=== PATIENT | female | born 1995 | race Two or more races ===

== ENCOUNTER 2020-02-26 09:55 | Emergency (ER) | payer MEDICAID, OTHER ==
[~2020-02-26] VITALS: Ht 160 cm; Wt 72.6 kg
[2020-02-26 10:25] LABS: Basophils # (auto) 0 10 ^3/uL (0-0.2); Basophils % (auto) 0.5 % (0.0-2.0); Eosinophils # (auto) 0 10 ^3/uL (0-0.8); Eosinophils % (auto) 0.1 % (0.0-7.0); Hemoglobin 13.1 g/dL (12.2-16.2); Lymphocytes # (auto) 2.2 10 ^3/uL (0.4-5.4); Lymphocytes % (auto) 24.5 % (10.0-50.0); Mean Corpuscular Hemoglobin 28.2 pg (28.0-32.0); Mean Corpuscular Hgb Conc. 33.6 g/dL (32.0-36.0); Mean Corpuscular Volume 84.1 fL (80.0-100.0); Monocytes # (auto) 0.8 10 ^3/uL (0-1.3); Monocytes % (auto) 8.4 % (0.0-12.0); Neutrophils # (auto) 5.9 10 ^3/uL (1.6-8.6); Neutrophils % (auto) 66.5 % (37.0-80.0); Platelet Count (auto) 333 10^3/uL (140-450); Red Blood Cells 4.64 10^6/uL (4.0-5.20); Red Cell Distribution Width 12.9 % (11.8-14.3); White Blood Cell 8.9 10^3/uL (4.4-10.8)
[2020-02-26 10:47] LABS: Albumin 3.6 g/dL (3.4-5.0); Potassium 3.3 mmol/L (3.5-5.1)
[2020-02-26 10:50] LABS: BUN/Creatinine Ratio 7.8; Bilirubin, Total 0.3 mg/dL (0.2-1.0); Total Protein 6.8 g/dL (6.4-8.2)
[2020-02-26 11:17] LABS: Thyroid Stimulating Hormone 0.57 uIU/mL (0.358-3.74)
[2020-02-26] MEDS ORDERED: SODIUM CHLORIDE 0.9% 1,000 ML IV ONE (11:30)
[2020-02-26] MEDS ORDERED: POTASSIUM EFFERVESENT TAB 25 MEQ PO ONE (12:45)
[2020-02-26 13:00] VITALS: BP 114/44
[2020-02-26 13:01] LABS: Urine Bacteria NONE SEEN /hpf (None Seen); Urine Blood Negative /uL (Negative); Urine Mucus FEW (None Seen); Urine Specific Gravity 1.015 (1.001-1.035); Urine WBC 1 /hpf (0 - 5)
[2020-02-26] MEDS ORDERED: ONDANSETRON HCL 4 MG/2 ML VIAL IV ONE (13:30)
== END 2020-02-26 15:06 | disposition home or self-care (01) ==
LOC: ER 09:55
DX: O21.8 Other vomiting complicating pregnancy (principal); O99.344 Other mental disorders complicating childbirth; E87.6 Hypokalemia; N83.202 Unspecified ovarian cyst, left side; Z3A.08 8 weeks gestation of pregnancy; Z37.9 Outcome of delivery, unspecified
CPT/HCPCS: 36415; 76801; 80053; 81001; 84443; 84702; 85025; 85379; 96361; 96374; 99284; J2405; J7030

== ENCOUNTER 2020-03-13 09:55 | Emergency (ER) | payer MEDICAID ==
[~2020-03-13] VITALS: Ht 160 cm; Wt 72.6 kg
[2020-03-13] MEDS ORDERED: LIDOCAINE 2% JELLY 11ml (GLYDO) UR STA (12:29)
[2020-03-13 13:53] VITALS: BP 110/72
== END 2020-03-13 13:32 | disposition home or self-care (01) ==
LOC: ER 09:55
DX: O26.891 Other specified pregnancy related conditions, first trimester (principal); T18.5XXA Foreign body in anus and rectum, initial encounter; Z3A.10 10 weeks gestation of pregnancy; X58.XXXA Exposure to other specified factors, initial encounter; Y93.89 Activity, other specified; Y92.89 Other specified places as the place of occurrence of the external cause; Y99.8 Other external cause status
CPT/HCPCS: 36415; 76801; 84702

== ENCOUNTER 2020-04-05 11:53 | Emergency (ER) | payer MEDICAID ==
[~2020-04-05] VITALS: Ht 160 cm; Wt 77.1 kg
[2020-04-05 13:20] LABS: Basophils # (auto) 0 10 ^3/uL (0-0.2); Basophils % (auto) 0.2 % (0.0-2.0); Eosinophils # (auto) 0 10 ^3/uL (0-0.8); Eosinophils % (auto) 0.2 % (0.0-7.0); Hematocrit 35.3 % (36.0-46.0); Hemoglobin 11.7 g/dL (12.2-16.2); Lymphocytes # (auto) 1.7 10 ^3/uL (0.4-5.4); Lymphocytes % (auto) 16.3 % (10.0-50.0); Mean Corpuscular Hemoglobin 27.4 pg (28.0-32.0); Mean Corpuscular Hgb Conc. 33.1 g/dL (32.0-36.0); Mean Corpuscular Volume 82.8 fL (80.0-100.0); Monocytes # (auto) 0.7 10 ^3/uL (0-1.3); Monocytes % (auto) 6.3 % (0.0-12.0); Neutrophils # (auto) 8.2 10 ^3/uL (1.6-8.6); Platelet Count (auto) 366 10^3/uL (140-450); Red Blood Cells 4.27 10^6/uL (4.0-5.20); Red Cell Distribution Width 12.8 % (11.8-14.3); White Blood Cell 10.6 10^3/uL (4.4-10.8)
[2020-04-05 13:31] LABS: Urine Bacteria NONE SEEN /hpf (None Seen); Urine Blood Negative /uL (Negative); Urine Mucus FEW (None Seen); Urine Specific Gravity 1.008 (1.001-1.035); Urine WBC 3 /hpf (0 - 5)
[2020-04-05 13:34] LABS: Albumin 3.3 g/dL (3.4-5.0); Potassium 4.3 mmol/L (3.5-5.1)
[2020-04-05 13:36] LABS: BUN/Creatinine Ratio 8.8
[2020-04-05 13:42] LABS: Bilirubin, Total 0.2 mg/dL (0.2-1.0); Total Protein 7.1 g/dL (6.4-8.2)
[2020-04-05 14:04] VITALS: BP 122/53
== END 2020-04-05 14:27 | disposition home or self-care (01) ==
LOC: ER 11:53
DX: O30.001 Twin pregnancy, unspecified number of placenta and unspecified number of amniotic sacs, first trimester (principal); O26.891 Other specified pregnancy related conditions, first trimester; Z3A.13 13 weeks gestation of pregnancy
CPT/HCPCS: 36415; 76801; 80053; 81001; 84702; 85025

== ENCOUNTER → 2021-06-07 | Emergency (ER) | payer MEDICAID ==
[~2021-06-07] VITALS: Ht 160 cm; Wt 122.9 kg
[~2021-06-07] MED LIST: ACET-1156 PO
[2021-06-07 09:14] LABS: Urine Bacteria NONE SEEN /hpf (None Seen); Urine Blood Negative /uL (Negative); Urine Specific Gravity 1.011 (1.001-1.035); Urine WBC <1 /hpf (0 - 5)
[2021-06-07 10:50] LABS: Basophils # (auto) 0.1 10 ^3/uL (0-0.2); Basophils % (auto) 0.7 % (0.0-2.0); Eosinophils # (auto) 0.2 10 ^3/uL (0-0.8); Eosinophils % (auto) 2.6 % (0.0-7.0); Hematocrit 36.8 % (36.0-46.0); Hemoglobin 11.9 g/dL (12.2-16.2); Lymphocytes # (auto) 2.9 10 ^3/uL (0.4-5.4); Lymphocytes % (auto) 37.5 % (10.0-50.0); Mean Corpuscular Hemoglobin 27.1 pg (28.0-32.0); Mean Corpuscular Hgb Conc. 32.2 g/dL (32.0-36.0); Monocytes # (auto) 0.6 10 ^3/uL (0-1.3); Monocytes % (auto) 7.8 % (0.0-12.0); Neutrophils # (auto) 3.9 10 ^3/uL (1.6-8.6); Neutrophils % (auto) 51.4 % (37.0-80.0); Nucleated Red Blood Cells % 0.1 %; Red Blood Cells 4.38 10^6/uL (4.0-5.20); Red Cell Distribution Width 14.7 % (11.8-14.3); White Blood Cell 7.6 10^3/uL (4.4-10.8)
[2021-06-07 11:03] LABS: Albumin 3.6 g/dL (3.4-5.0); Calcium 8.9 mg/dL (8.5-10.1); Potassium 4.3 mmol/L (3.5-5.1)
[2021-06-07 11:06] LABS: BUN/Creatinine Ratio 14.1; Bilirubin, Total 0.1 mg/dL (0.2-1.0); Total Protein 6.8 g/dL (6.4-8.2)
[2021-06-07 12:46] VITALS: BP 114/66
== END | disposition home or self-care (01) ==
LOC: ER 08:04
DX: N83.202 Unspecified ovarian cyst, left side (principal); F17.210 Nicotine dependence, cigarettes, uncomplicated
CPT/HCPCS: 36415; 76830; 76856; 80053; 81001; 85025

== ENCOUNTER 2023-02-14 06:15 | Emergency (ER) | payer MEDICAID ==
[~2023-02-14] VITALS: Ht 160 cm; Wt 88.6 kg
[~2023-02-14 06:15] MED LIST changes: -ACET-1156 PO; +ACET-1881 PO
[2023-02-14 07:07] LABS: Urine Bacteria NONE SEEN /hpf (None Seen); Urine Blood 2+ /uL (Negative); Urine Clarity HAZY (Clear); Urine Color Yellow (Yellow); Urine Protein, UAD 2+ (Negative); Urine Specific Gravity 1.012 (1.001-1.035); Urine Urobilinogen Normal (Negative); Urine WBC 360 /hpf (0 - 5); Urine pH 6.5 (5.0-8.0)
[2023-02-14 07:34] VITALS: BP 132/51; PULSE 66; RESP 15; TEMP 97.6; O2SAT 99
[2023-02-14] MEDS ORDERED: KETOROLAC TROMETH 30 MG/ML 1ML VIAL IM ONE (08:15)
[2023-02-14] MEDS ORDERED: CEFP100T6 PO (08:38)
[2023-02-14] MEDS ORDERED: cefTRIAXone SOD 1,000 MG VL IM ONE (08:45)
== END 2023-02-14 08:58 | disposition home or self-care (01) ==
LOC: ER 06:15
DX: N12 Tubulo-interstitial nephritis, not specified as acute or chronic (principal); F41.9 Anxiety disorder, unspecified; Z79.1 Long term (current) use of non-steroidal anti-inflammatories (NSAID); Z79.899 Other long term (current) drug therapy
CPT/HCPCS: 81001; 96372; 99284; J0696; J1885